=== PATIENT | male | born 1990 | race Caucasian/White ===

== ENCOUNTER 2021-01-30 16:40 | Emergency (ER) | payer MEDICARE, MEDICAID ==
[2021-01-30] MEDS ORDERED: Diazepam 5 MG TAB ONE (17:00)
[2021-01-30] MEDS ORDERED: Ketorolac Tromethamine 30 MG/ML VIAL ONE (17:00)
== END 2021-01-30 17:31 | disposition home or self-care (01) ==
LOC: BURERS 16:40
DX: M43.6 Torticollis (principal)
CPT/HCPCS: 96372; 99283; J1885